=== PATIENT | male | born 1930 | race Caucasian/White ===

== ENCOUNTER 2017-11-08 01:58 | Emergency (ER) | payer MEDICARE, OTHER ==
[2017-11-08 03:18] LABS: BASO % 0.3 % (0.0-1.0); EOS # 0.2 10^3/uL (0.0-0.50); EOS % 1.9 % (0.0-3.0); HEMATOCRIT 43.9 % (42.0-52.0); HEMOGLOBIN 14.7 g/dl (14.0-18.0); IMMATURE GRANULOCYTE % 0.2 % (0-3.0); LYMPH # 2.9 10^3/uL (1.5-4.5); LYMPH % 31.6 % (24.0-44.0); MEAN CORPUSCULAR HEMOGLOBIN 31.8 pg (27.0-33.0); MEAN CORPUSCULAR HGB CONC 33.5 g/dl (32.0-36.5); MONO # 0.8 10^3/uL (0.0-0.8); MONO % 8.9 % (0.0-5.0); NEUTROPHILS # 5.2 10^3/uL (1.8-7.7); NEUTROPHILS % 57.1 % (36.0-66.0); PLATELET COUNT, AUTOMATED 216 10^3/uL (150-450); RED BLOOD COUNT 4.62 10^6/uL (4.30-6.10); RED CELL DISTRIBUTION WIDTH 12.9 % (11.5-14.5); WHITE BLOOD COUNT 9.1 10^3/uL (4.0-10.0)
[2017-11-08 03:54] LABS: LACTIC ACID SEPSIS PROTOCOL 0.7 MMOL/L (0.4-2.0)
[2017-11-08 03:55] LABS: ALBUMIN 3.8 GM/DL (3.2-5.2); ALBUMIN/GLOBULIN RATIO 1.27 (1.00-1.93); ALKALINE PHOSPHATASE 64 U/L (45-117); ALT/SGPT 48 U/L (12-78); ANION GAP 8 MEQ/L (8-16); AST/SGOT 21 U/L (7-37); BILIRUBIN,DIRECT 0.2 MG/DL (0.0-0.2); BILIRUBIN,TOTAL 0.7 MG/DL (0.2-1.0); BLOOD UREA NITROGEN 59 MG/DL (7-18); CALCIUM LEVEL 9.1 MG/DL (8.8-10.2); CARBON DIOXIDE LEVEL 26 MEQ/L (21-32); CHLORIDE LEVEL 109 MEQ/L (98-107); CPK CREATINE PHOSPHOKINASE 84 U/L (39-308); CREATININE FOR GFR 2.13 MG/DL (0.70-1.30); GLOMERULAR FILTRATION RATE 31.6 (>35); GLUCOSE, FASTING 106 MG/DL (70-100); LIPASE 736 U/L (73-393); POTASSIUM SERUM 4.9 MEQ/L (3.5-5.1); SODIUM LEVEL 143 MEQ/L (136-145); TOTAL PROTEIN 6.8 GM/DL (6.4-8.2); TROPONIN I < 0.02 NG/ML (< 0.10)
[2017-11-08 03:56] LABS: CK-MB VALUE MASS 2.7 NG/ML (<3.6); MB/CK RELATIVE INDEX 3.21 (< OR =4)
[2017-11-08] MEDS: GASTROGRAFIN SOLUTION 30ML PO ×2 (06:15→07:40)
== END 2017-11-08 11:45 | disposition home or self-care (01) ==
LOC: M ED 01:58
DX: R14.0 Abdominal distension (gaseous) (principal); K85.90 Acute pancreatitis without necrosis or infection, unspecified; I10 Essential (primary) hypertension; N28.9 Disorder of kidney and ureter, unspecified; E78.5 Hyperlipidemia, unspecified; K21.9 Gastro-esophageal reflux disease without esophagitis; N40.0 Benign prostatic hyperplasia without lower urinary tract symptoms; Z98.890 Other specified postprocedural states; Z79.899 Other long term (current) drug therapy; Z79.82 Long term (current) use of aspirin
CPT/HCPCS: Q9963

== ENCOUNTER 2017-11-10 20:12 | Inpatient (IN) | payer MEDICARE, OTHER ==
[2017-11-10] MEDS: LACTOBACILLUS ACIDOPHILUS CAP (BACID) PO (18:00)
[2017-11-10] MEDS: ATORVASTATIN 20 MG TAB PO (18:00)
[2017-11-10] MEDS: SENOKOT S TAB PO (21:00)
[2017-11-10] MEDS: PANTOPRAZOLE 40MG INJ (PROTONIX) (C9113) IV (21:00)
[2017-11-10] MEDS: HEPARIN SOD (PORCINE) 5000 UNITS/ML VIAL SC (21:00)
[2017-11-10] MEDS: NS 1,000 ML IV (21:26)
[2017-11-10] MEDS: ONDANSETRON 4MG/2ML VIAL (J2405) IV (21:26)
[2017-11-10] MEDS: MORPHINE 2 MG/ML 1ML SYRINGE (J2270) IV ×2 (21:26→22:11)
[2017-11-10 21:28] LABS: BASO % 0.4 % (0.0-1.0); EOS # 0.2 10^3/uL (0.0-0.50); EOS % 2.1 % (0.0-3.0); HEMATOCRIT 43.1 % (42.0-52.0); HEMOGLOBIN 14.8 g/dl (13.5-17.5); IMMATURE GRANULOCYTE % 0.1 % (0-3.0); LYMPH # 2.6 10^3/uL (1.5-4.5); LYMPH % 31.9 % (24.0-44.0); MEAN CORPUSCULAR HEMOGLOBIN 31.6 pg (27.0-33.0); MEAN CORPUSCULAR HGB CONC 34.3 g/dl (32.0-36.5); MEAN CORPUSCULAR VOLUME 91.9 fl (80.0-96.0); MONO # 0.9 10^3/uL (0.0-0.8); MONO % 11.1 % (0.0-5.0); NEUTROPHILS # 4.4 10^3/uL (1.8-7.7); NEUTROPHILS % 54.4 % (36.0-66.0); PLATELET COUNT, AUTOMATED 225 10^3/uL (150-450); RED BLOOD COUNT 4.69 10^6/uL (4.30-6.10); RED CELL DISTRIBUTION WIDTH 12.6 % (11.5-14.5); WHITE BLOOD COUNT 8.1 10^3/uL (4.0-10.0)
[2017-11-10 21:40] LABS: ALBUMIN 3.9 GM/DL (3.2-5.2); ALKALINE PHOSPHATASE 73 U/L (45-117); ALT/SGPT 44 U/L (12-78); ANION GAP 7 MEQ/L (8-16); AST/SGOT 27 U/L (7-37); BILIRUBIN,DIRECT 0.2 MG/DL (0.0-0.2); BILIRUBIN,TOTAL 0.8 MG/DL (0.2-1.0); BLOOD UREA NITROGEN 37 MG/DL (7-18); CALCIUM LEVEL 9.3 MG/DL (8.8-10.2); CARBON DIOXIDE LEVEL 27 MEQ/L (21-32); CHLORIDE LEVEL 105 MEQ/L (98-107); CREATININE FOR GFR 2.15 MG/DL (0.70-1.30); GLOMERULAR FILTRATION RATE 31.3 (>35); GLUCOSE, FASTING 100 MG/DL (70-100); LIPASE 541 U/L (73-393); POTASSIUM SERUM 4.8 MEQ/L (3.5-5.1); SODIUM LEVEL 139 MEQ/L (136-145); TOTAL PROTEIN 6.9 GM/DL (6.4-8.2)
[2017-11-10 21:44] LABS: KETONE, URINE AUTO RFX NEGATIVE (NEGATIVE); LEUKOCYTE ESTERASE UR AUTO RFX NEGATIVE (NEGATIVE); MUCUS, URINE RFX SMALL (NEGATIVE); NITRITE, URINE AUTO RFX NEGATIVE (NEGATIVE); RBC, URINE AUTO RFX 1 /HPF (0-3); SQUAM EPITHELIAL CELL UR AURFX 0 /HPF (0-6); WBC, URINE AUTO RFX 0 /HPF (0-3)
[2017-11-10] MEDS: LORazepam 2 MG/ML VIAL (J2060) IV (22:33)
[2017-11-10] MEDS: GI COCKTAIL 50ML BTL(HYOSCYAMINE/MAALOX/LIDOCAINE VISCOUS)(1:3:1) PO (22:47)
[2017-11-10] MEDS ORDERED: ONDANSETRON 4MG/2ML VIAL (J2405) IV (23:45)
[2017-11-10 23:51] LABS: CK-MB VALUE MASS 4.1 NG/ML (<3.6); CPK CREATINE PHOSPHOKINASE 160 U/L (39-308); MB/CK RELATIVE INDEX 2.56 (< OR =4); TROPONIN I < 0.02 NG/ML (< 0.10)
[2017-11-10] MEDS: GASTROGRAFIN SOLUTION 30ML (Q9963) PO (23:55)
[2017-11-11] MEDS: GASTROGRAFIN SOLUTION 30ML (Q9963) PO (00:25)
[2017-11-11] MEDS: NS 1,000 ML IV ×4 (04:47→23:58)
[2017-11-11 05:38] LABS: HEMATOCRIT 39.8 % (42.0-52.0); HEMOGLOBIN 13.2 g/dl (13.5-17.5); MEAN CORPUSCULAR HEMOGLOBIN 31.6 pg (27.0-33.0); MEAN CORPUSCULAR HGB CONC 33.2 g/dl (32.0-36.5); MEAN CORPUSCULAR VOLUME 95.2 fl (80.0-96.0); PLATELET COUNT, AUTOMATED 180 10^3/uL (150-450); RED BLOOD COUNT 4.18 10^6/uL (4.30-6.10); RED CELL DISTRIBUTION WIDTH 12.5 % (11.5-14.5); WHITE BLOOD COUNT 6.5 10^3/uL (4.0-10.0)
[2017-11-11 06:04] LABS: ALBUMIN 3.1 GM/DL (3.2-5.2); ALBUMIN/GLOBULIN RATIO 1.15 (1.00-1.93); ALKALINE PHOSPHATASE 127 U/L (45-117); ALT/SGPT 141 U/L (12-78); ANION GAP 6 MEQ/L (8-16); AST/SGOT 164 U/L (7-37); BLOOD UREA NITROGEN 34 MG/DL (7-18); CALCIUM LEVEL 8.5 MG/DL (8.8-10.2); CARBON DIOXIDE LEVEL 27 MEQ/L (21-32); CHLORIDE LEVEL 106 MEQ/L (98-107); CK-MB VALUE MASS 3.5 NG/ML (<3.6); CPK CREATINE PHOSPHOKINASE 132 U/L (39-308); CREATININE FOR GFR 1.96 MG/DL (0.70-1.30); GLOMERULAR FILTRATION RATE 34.8 (>35); GLUCOSE, FASTING 94 MG/DL (70-100); MAGNESIUM LEVEL 1.9 MG/DL (1.8-2.4); MB/CK RELATIVE INDEX 2.65 (< OR =4); POTASSIUM SERUM 4.3 MEQ/L (3.5-5.1); SODIUM LEVEL 139 MEQ/L (136-145); TOTAL PROTEIN 5.8 GM/DL (6.4-8.2); TROPONIN I < 0.02 NG/ML (< 0.10)
[2017-11-11 06:17] LABS: BILIRUBIN,TOTAL 1.4 MG/DL (0.2-1.0)
[2017-11-11] MEDS ORDERED: PANTOPRAZOLE 40MG TAB (PROTONIX) PO (09:00)
[2017-11-11] MEDS: ASPIRIN 81 MG ENTERIC TAB PO (09:38)
[2017-11-11] MEDS: HEPARIN SOD (PORCINE) 5000 UNITS/ML VIAL SC ×2 (09:38→20:53)
[2017-11-11] MEDS: MULTIVITAMINS/MINERALS THERAP 1 TAB PO (09:38)
[2017-11-11] MEDS: SENOKOT S TAB PO ×2 (09:38→20:52)
[2017-11-11] MEDS: METOPROLOL SUCC (TopROL XL) 50MG **XL** TAB PO (09:40)
[2017-11-11] MEDS: GOLYTELY SOLN 4000 ML BTL PO (18:09)
[2017-11-11] MEDS: ATORVASTATIN 20 MG TAB PO (18:11)
[2017-11-11] MEDS: LACTOBACILLUS ACIDOPHILUS CAP (BACID) PO (18:11)
[2017-11-11] MEDS: PANTOPRAZOLE 40MG INJ (PROTONIX) (C9113) IV (20:53)
[2017-11-12] MEDS ORDERED: GOLYTELY SOLN 4000 ML BTL PO (04:00)
[2017-11-12 06:18] LABS: HEMATOCRIT 40.7 % (42.0-52.0); HEMOGLOBIN 13.7 g/dl (13.5-17.5); MEAN CORPUSCULAR HEMOGLOBIN 31.8 pg (27.0-33.0); MEAN CORPUSCULAR HGB CONC 33.7 g/dl (32.0-36.5); MEAN CORPUSCULAR VOLUME 94.4 fl (80.0-96.0); PLATELET COUNT, AUTOMATED 188 10^3/uL (150-450); RED BLOOD COUNT 4.31 10^6/uL (4.30-6.10); RED CELL DISTRIBUTION WIDTH 12.5 % (11.5-14.5); WHITE BLOOD COUNT 6.7 10^3/uL (4.0-10.0)
[2017-11-12 06:39] LABS: ALBUMIN 3.3 GM/DL (3.2-5.2); ALKALINE PHOSPHATASE 126 U/L (45-117); ALT/SGPT 116 U/L (12-78); ANION GAP 5 MEQ/L (8-16); AST/SGOT 68 U/L (7-37); BILIRUBIN,TOTAL 0.7 MG/DL (0.2-1.0); BLOOD UREA NITROGEN 23 MG/DL (7-18); CALCIUM LEVEL 8.6 MG/DL (8.8-10.2); CARBON DIOXIDE LEVEL 28 MEQ/L (21-32); CHLORIDE LEVEL 109 MEQ/L (98-107); CREATININE FOR GFR 1.75 MG/DL (0.70-1.30); GLOMERULAR FILTRATION RATE 39.6 (>35); GLUCOSE, FASTING 85 MG/DL (70-100); MAGNESIUM LEVEL 1.9 MG/DL (1.8-2.4); POTASSIUM SERUM 4.2 MEQ/L (3.5-5.1); SODIUM LEVEL 142 MEQ/L (136-145); TOTAL PROTEIN 6.3 GM/DL (6.4-8.2)
[2017-11-12] MEDS: METOPROLOL SUCC (TopROL XL) 50MG **XL** TAB PO (08:01)
[2017-11-12] MEDS: NS 1,000 ML IV ×4 (08:02→20:22)
[2017-11-12] MEDS ORDERED: fentaNYL 100 MCG/2 ML INJECTION (J3010) As Ordered (12:15)
[2017-11-12] MEDS ORDERED: MIDAZOLAM INJ 2 MG/2 ML VIAL (J2250) As Ordered (12:15)
[2017-11-12] MEDS ORDERED: ISOVUE-300 61% 50ML VIAL (Q9967) As Ordered (12:16)
[2017-11-12] MEDS ORDERED: fentaNYL 100 MCG/2 ML INJECTION (J3010) IV (14:30)
[2017-11-12] MEDS ORDERED: ONDANSETRON 4MG/2ML VIAL (J2405) IV (14:30)
[2017-11-12] MEDS: ASPIRIN 81 MG ENTERIC TAB PO (14:56)
[2017-11-12] MEDS: SENOKOT S TAB PO ×2 (14:56→20:22)
[2017-11-12] MEDS: VITAMIN D 1,000 INTERNATIONAL UNITS TABLET PO (14:56)
[2017-11-12] MEDS: MULTIVITAMINS/MINERALS THERAP 1 TAB PO (14:56)
[2017-11-12] MEDS: HEPARIN SOD (PORCINE) 5000 UNITS/ML VIAL SC ×2 (14:57→20:22)
[2017-11-12] MEDS: CLOPIDOGREL 300 MG TAB (PLAVIX) PO (15:02)
[2017-11-12] MEDS: LACTOBACILLUS ACIDOPHILUS CAP (BACID) PO (17:14)
[2017-11-12] MEDS: ATORVASTATIN 20 MG TAB PO (17:14)
[2017-11-12] MEDS: PANTOPRAZOLE 40MG INJ (PROTONIX) (C9113) IV (20:21)
[2017-11-13] MEDS: MORPHINE 4 MG/ML 1ML VIAL/SYRINGE (J2270) IV (00:17)
[2017-11-13 05:57] LABS: HEMATOCRIT 35.1 % (42.0-52.0); HEMOGLOBIN 11.8 g/dl (13.5-17.5); MEAN CORPUSCULAR HGB CONC 33.6 g/dl (32.0-36.5); MEAN CORPUSCULAR VOLUME 95.1 fl (80.0-96.0); PLATELET COUNT, AUTOMATED 148 10^3/uL (150-450); RED BLOOD COUNT 3.69 10^6/uL (4.30-6.10); RED CELL DISTRIBUTION WIDTH 12.5 % (11.5-14.5); WHITE BLOOD COUNT 7.8 10^3/uL (4.0-10.0)
[2017-11-13 06:15] LABS: ALBUMIN 2.8 GM/DL (3.2-5.2); ALBUMIN/GLOBULIN RATIO 1.08 (1.00-1.93); ALKALINE PHOSPHATASE 111 U/L (45-117); ALT/SGPT 74 U/L (12-78); ANION GAP 7 MEQ/L (8-16); AST/SGOT 41 U/L (7-37); BILIRUBIN,TOTAL 0.7 MG/DL (0.2-1.0); BLOOD UREA NITROGEN 12 MG/DL (7-18); CALCIUM LEVEL 8.1 MG/DL (8.8-10.2); CARBON DIOXIDE LEVEL 22 MEQ/L (21-32); CHLORIDE LEVEL 114 MEQ/L (98-107); GLOMERULAR FILTRATION RATE 55.9 (>35); GLUCOSE, FASTING 81 MG/DL (70-100); LIPASE 381 U/L (73-393); MAGNESIUM LEVEL 1.8 MG/DL (1.8-2.4); POTASSIUM SERUM 4.1 MEQ/L (3.5-5.1); SODIUM LEVEL 143 MEQ/L (136-145); TOTAL PROTEIN 5.4 GM/DL (6.4-8.2)
[2017-11-13] MEDS: ASPIRIN 81 MG ENTERIC TAB PO (08:27)
[2017-11-13] MEDS: MULTIVITAMINS/MINERALS THERAP 1 TAB PO (08:27)
[2017-11-13] MEDS: METOPROLOL SUCC (TopROL XL) 50MG **XL** TAB PO (08:28)
[2017-11-13] MEDS: CLOPIDOGREL 75 MG TAB PO (08:28)
[2017-11-13] MEDS: SENOKOT S TAB PO ×2 (08:28→20:07)
[2017-11-13] MEDS: HEPARIN SOD (PORCINE) 5000 UNITS/ML VIAL SC ×2 (08:29→20:04)
[2017-11-13] MEDS: NS 1,000 ML IV ×3 (09:55→20:05)
[2017-11-13] MEDS: ATORVASTATIN 20 MG TAB PO (18:22)
[2017-11-13] MEDS: LACTOBACILLUS ACIDOPHILUS CAP (BACID) PO (18:22)
[2017-11-13] MEDS: PANTOPRAZOLE 40MG INJ (PROTONIX) (C9113) IV (20:04)
[2017-11-14 06:11] LABS: HEMATOCRIT 32.6 % (42.0-52.0); MEAN CORPUSCULAR HEMOGLOBIN 31.2 pg (27.0-33.0); MEAN CORPUSCULAR HGB CONC 33.7 g/dl (32.0-36.5); MEAN CORPUSCULAR VOLUME 92.4 fl (80.0-96.0); PLATELET COUNT, AUTOMATED 148 10^3/uL (150-450); RED BLOOD COUNT 3.53 10^6/uL (4.30-6.10); RED CELL DISTRIBUTION WIDTH 12.6 % (11.5-14.5)
[2017-11-14 06:33] LABS: ALBUMIN 2.6 GM/DL (3.2-5.2); ALBUMIN/GLOBULIN RATIO 1.04 (1.00-1.93); ALKALINE PHOSPHATASE 90 U/L (45-117); ALT/SGPT 56 U/L (12-78); ANION GAP 6 MEQ/L (8-16); AST/SGOT 27 U/L (7-37); BILIRUBIN,TOTAL 0.7 MG/DL (0.2-1.0); BLOOD UREA NITROGEN 8 MG/DL (7-18); CALCIUM LEVEL 7.8 MG/DL (8.8-10.2); CARBON DIOXIDE LEVEL 23 MEQ/L (21-32); CHLORIDE LEVEL 112 MEQ/L (98-107); CREATININE FOR GFR 1.23 MG/DL (0.70-1.30); GLOMERULAR FILTRATION RATE 59.5 (>35); GLUCOSE, FASTING 86 MG/DL (70-100); LIPASE 344 U/L (73-393); MAGNESIUM LEVEL 1.6 MG/DL (1.8-2.4); POTASSIUM SERUM 4.1 MEQ/L (3.5-5.1); SODIUM LEVEL 141 MEQ/L (136-145); TOTAL PROTEIN 5.1 GM/DL (6.4-8.2)
[2017-11-14] MEDS: HEPARIN SOD (PORCINE) 5000 UNITS/ML VIAL SC ×2 (09:00→21:38)
[2017-11-14] MEDS: MULTIVITAMINS/MINERALS THERAP 1 TAB PO (09:52)
[2017-11-14] MEDS: VITAMIN D 1,000 INTERNATIONAL UNITS TABLET PO (09:52)
[2017-11-14] MEDS: METOPROLOL SUCC (TopROL XL) 50MG **XL** TAB PO (09:54)
[2017-11-14] MEDS: CLOPIDOGREL 75 MG TAB PO (09:54)
[2017-11-14] MEDS: SENOKOT S TAB PO ×2 (09:54→21:38)
[2017-11-14] MEDS: ASPIRIN 81 MG ENTERIC TAB PO (09:55)
[2017-11-14] MEDS: NS 1,000 ML IV ×2 (11:29→19:14)
[2017-11-14] MEDS ORDERED: THROMBIN SOLN 5,000 UNITS VIAL As Ordered (17:55)
[2017-11-14] MEDS ORDERED: LIDOCAINE 2% MDV 20 ML VIAL As Ordered (18:23)
[2017-11-14] MEDS: LACTOBACILLUS ACIDOPHILUS CAP (BACID) PO (19:14)
[2017-11-14] MEDS: ATORVASTATIN 20 MG TAB PO (19:14)
[2017-11-14] MEDS: PANTOPRAZOLE 40MG INJ (PROTONIX) (C9113) IV (21:37)
[2017-11-15] MEDS: **hydrALAZINE** 50 MG TAB PO (02:15)
[2017-11-15 06:23] LABS: HEMATOCRIT 35.1 % (42.0-52.0); HEMOGLOBIN 12.1 g/dl (13.5-17.5); MEAN CORPUSCULAR HEMOGLOBIN 32.1 pg (27.0-33.0); MEAN CORPUSCULAR HGB CONC 34.5 g/dl (32.0-36.5); MEAN CORPUSCULAR VOLUME 93.1 fl (80.0-96.0); PLATELET COUNT, AUTOMATED 168 10^3/uL (150-450); RED BLOOD COUNT 3.77 10^6/uL (4.30-6.10); RED CELL DISTRIBUTION WIDTH 12.8 % (11.5-14.5); WHITE BLOOD COUNT 9.1 10^3/uL (4.0-10.0)
[2017-11-15 06:37] LABS: ALBUMIN/GLOBULIN RATIO 0.97 (1.00-1.93); ALKALINE PHOSPHATASE 105 U/L (45-117); ALT/SGPT 66 U/L (12-78); ANION GAP 10 MEQ/L (8-16); AST/SGOT 43 U/L (7-37); BILIRUBIN,TOTAL 0.9 MG/DL (0.2-1.0); BLOOD UREA NITROGEN 9 MG/DL (7-18); CALCIUM LEVEL 8.3 MG/DL (8.8-10.2); CARBON DIOXIDE LEVEL 18 MEQ/L (21-32); CHLORIDE LEVEL 112 MEQ/L (98-107); CREATININE FOR GFR 1.15 MG/DL (0.70-1.30); GLOMERULAR FILTRATION RATE > 60.0 (>35); GLUCOSE, FASTING 71 MG/DL (70-100); LIPASE 408 U/L (73-393); MAGNESIUM LEVEL 1.6 MG/DL (1.8-2.4); POTASSIUM SERUM 3.8 MEQ/L (3.5-5.1); SODIUM LEVEL 140 MEQ/L (136-145); TOTAL PROTEIN 6.1 GM/DL (6.4-8.2)
[2017-11-15] MEDS: HEPARIN SOD (PORCINE) 5000 UNITS/ML VIAL SC ×2 (08:54→20:17)
[2017-11-15] MEDS: MAG SULF 1GM/100ML (MAG RUN) 1 GM in APPROPRIATE DILUENT 1 EA IV (08:54)
[2017-11-15] MEDS: ASPIRIN 81 MG ENTERIC TAB PO (08:55)
[2017-11-15] MEDS: CLOPIDOGREL 75 MG TAB PO (08:55)
[2017-11-15] MEDS: SENOKOT S TAB PO ×2 (08:58→20:13)
[2017-11-15] MEDS: MULTIVITAMINS/MINERALS THERAP 1 TAB PO (08:58)
[2017-11-15] MEDS: METOPROLOL SUCC (TopROL XL) 50MG **XL** TAB PO (08:58)
[2017-11-15] MEDS ORDERED: VALSARTAN 80 MG TAB (DIOVAN) PO (09:00)
[2017-11-15] MEDS: ACETAMINOPHEN 325 MG TAB PO ×2 (11:45→20:14)
[2017-11-15] MEDS: ATORVASTATIN 20 MG TAB PO (17:37)
[2017-11-15] MEDS: LACTOBACILLUS ACIDOPHILUS CAP (BACID) PO (17:37)
[2017-11-15] MEDS: VALSARTAN 80 MG TAB (DIOVAN) PO (20:16)
[2017-11-15] MEDS: PANTOPRAZOLE 40MG INJ (PROTONIX) (C9113) IV (20:17)
[2017-11-16 06:08] LABS: HEMATOCRIT 32.8 % (42.0-52.0); HEMOGLOBIN 11.4 g/dl (13.5-17.5); MEAN CORPUSCULAR HEMOGLOBIN 31.7 pg (27.0-33.0); MEAN CORPUSCULAR HGB CONC 34.8 g/dl (32.0-36.5); MEAN CORPUSCULAR VOLUME 91.1 fl (80.0-96.0); PLATELET COUNT, AUTOMATED 190 10^3/uL (150-450); RED CELL DISTRIBUTION WIDTH 12.7 % (11.5-14.5); WHITE BLOOD COUNT 7.7 10^3/uL (4.0-10.0)
[2017-11-16 06:31] LABS: ALBUMIN 2.8 GM/DL (3.2-5.2); ALBUMIN/GLOBULIN RATIO 0.97 (1.00-1.93); ALKALINE PHOSPHATASE 90 U/L (45-117); ALT/SGPT 56 U/L (12-78); ANION GAP 7 MEQ/L (8-16); AST/SGOT 29 U/L (7-37); BILIRUBIN,DIRECT 0.2 MG/DL (0.0-0.2); BILIRUBIN,TOTAL 0.8 MG/DL (0.2-1.0); BLOOD UREA NITROGEN 10 MG/DL (7-18); CALCIUM LEVEL 8.3 MG/DL (8.8-10.2); CARBON DIOXIDE LEVEL 25 MEQ/L (21-32); CHLORIDE LEVEL 112 MEQ/L (98-107); CREATININE FOR GFR 1.37 MG/DL (0.70-1.30); GLOMERULAR FILTRATION RATE 52.6 (>35); GLUCOSE, FASTING 92 MG/DL (70-100); MAGNESIUM LEVEL 1.7 MG/DL (1.8-2.4); POTASSIUM SERUM 3.7 MEQ/L (3.5-5.1); SODIUM LEVEL 144 MEQ/L (136-145); TOTAL PROTEIN 5.7 GM/DL (6.4-8.2)
[2017-11-16] MEDS: MAGNESIUM OXIDE 400 MG TAB (MAG-OX) PO (08:44)
[2017-11-16] MEDS: SENOKOT S TAB PO (08:45)
[2017-11-16] MEDS: CLOPIDOGREL 75 MG TAB PO (08:45)
[2017-11-16] MEDS: VITAMIN D 1,000 INTERNATIONAL UNITS TABLET PO (08:45)
[2017-11-16] MEDS: MULTIVITAMINS/MINERALS THERAP 1 TAB PO (08:45)
[2017-11-16] MEDS: METOPROLOL SUCC (TopROL XL) 50MG **XL** TAB PO (08:45)
[2017-11-16] MEDS: ASPIRIN 81 MG ENTERIC TAB PO (08:45)
[2017-11-16] MEDS: HEPARIN SOD (PORCINE) 5000 UNITS/ML VIAL SC (08:45)
[2017-11-16] MEDS ORDERED: **hydrALAZINE** 50 MG TAB PO ×2 (09:00→17:00)
== END 2017-11-16 12:57 | disposition home or self-care (01) | DRG 252 ==
LOC: M MSPAV 11-11 03:50 → M ED 20:12 → M ED INP 23:35
PROC: 04753DZ Dilation of Superior Mesenteric Artery with Intraluminal Device, Percutaneous Approach (ICD-10-PCS; principal; 2017-11-12 11:33)
PROC: 04713DZ Dilation of Celiac Artery with Intraluminal Device, Percutaneous Approach (ICD-10-PCS; 2017-11-12 11:33)
PROC: B41BYZZ Fluoroscopy of Other Intra-Abdominal Arteries using Other Contrast (ICD-10-PCS; 2017-11-12 11:33)
PROC: B414YZZ Fluoroscopy of Superior Mesenteric Artery using Other Contrast (ICD-10-PCS; 2017-11-12 11:33)
DX: I77.1 Stricture of artery (principal); K85.90 Acute pancreatitis without necrosis or infection, unspecified; N18.4 Chronic kidney disease, stage 4 (severe); G12.9 Spinal muscular atrophy, unspecified; K55.1 Chronic vascular disorders of intestine; I77.4 Celiac artery compression syndrome; I12.9 Hypertensive chronic kidney disease with stage 1 through stage 4 chronic kidney disease, or unspecified chronic kidney disease; E78.5 Hyperlipidemia, unspecified; K21.9 Gastro-esophageal reflux disease without esophagitis; N40.0 Benign prostatic hyperplasia without lower urinary tract symptoms; Z98.890 Other specified postprocedural states; Z79.899 Other long term (current) drug therapy; Z79.82 Long term (current) use of aspirin

== ENCOUNTER → 2017-11-10 | Outpatient (CLI) | payer MEDICARE, OTHER ==
[2017-11-10 12:31] LABS: LIPASE 625 U/L (73-393)
[2017-11-10 12:31] LABS: AMYLASE 118 U/L (25-115)
== END ==
LOC: M LAB 11:35
DX: R14.0 Abdominal distension (gaseous) (principal); K59.00 Constipation, unspecified

== ENCOUNTER → 2017-12-27 | Outpatient (CLI) | payer MEDICARE, OTHER | LOC: M RAD 08:18 | DX: K55.1 Chronic vascular disorders of intestine (principal) | CPT/HCPCS: 93975 ==

== ENCOUNTER → 2018-04-20 | Outpatient (CLI) | payer MEDICARE, OTHER | LOC: M RAD 09:50 | DX: K55.1 Chronic vascular disorders of intestine (principal) | CPT/HCPCS: 76705 ==

== ENCOUNTER → 2018-06-01 | Outpatient (CLI) | payer MEDICARE, OTHER | LOC: M RAD 07:11 | DX: K55.1 Chronic vascular disorders of intestine (principal); R14.0 Abdominal distension (gaseous) | CPT/HCPCS: 76705 ==

== ENCOUNTER 2018-06-03 05:00 | Emergency (ER) | payer MEDICARE, OTHER ==
[2018-06-03 06:23] LABS: BASO % 0.5 % (0.0-1.0); EOS # 0.1 10^3/uL (0.0-0.50); EOS % 0.9 % (0.0-3.0); HEMATOCRIT 47.7 % (42.0-52.0); IMMATURE GRANULOCYTE % 0.2 % (0-3.0); LYMPH # 2.6 10^3/uL (1.5-4.5); LYMPH % 32.1 % (24.0-44.0); MEAN CORPUSCULAR HEMOGLOBIN 31.3 pg (27.0-33.0); MEAN CORPUSCULAR HGB CONC 33.5 g/dl (32.0-36.5); MEAN CORPUSCULAR VOLUME 93.3 fl (80.0-96.0); MONO # 0.6 10^3/uL (0.0-0.8); MONO % 7.3 % (0.0-5.0); NEUTROPHILS # 4.8 10^3/uL (1.8-7.7); PLATELET COUNT, AUTOMATED 198 10^3/uL (150-450); RED BLOOD COUNT 5.11 10^6/uL (4.30-6.10); RED CELL DISTRIBUTION WIDTH 14.4 % (11.5-14.5); WHITE BLOOD COUNT 8.2 10^3/uL (4.0-10.0)
[2018-06-03 06:34] LABS: INR 0.91; PROTHROMBIN TIME 12.4 SECONDS (12.1-14.4)
[2018-06-03 06:37] LABS: LACTIC ACID SEPSIS PROTOCOL 1.2 MMOL/L (0.4-2.0)
[2018-06-03 06:41] LABS: PARTIAL THROMBOPLASTIN TIME 28.2 SECONDS (25.4-37.6)
[2018-06-03 06:48] LABS: ALBUMIN 4.2 GM/DL (3.2-5.2); ALBUMIN/GLOBULIN RATIO 1.45 (1.00-1.93); ALKALINE PHOSPHATASE 74 U/L (45-117); ALT/SGPT 28 U/L (12-78); ANION GAP 10 MEQ/L (8-16); AST/SGOT 13 U/L (7-37); BILIRUBIN,DIRECT 0.2 MG/DL (0.0-0.2); BILIRUBIN,TOTAL 0.9 MG/DL (0.2-1.0); BLOOD UREA NITROGEN 49 MG/DL (7-18); CALCIUM LEVEL 9.5 MG/DL (8.8-10.2); CARBON DIOXIDE LEVEL 26 MEQ/L (21-32); CHLORIDE LEVEL 106 MEQ/L (98-107); CREATININE FOR GFR 2.12 MG/DL (0.70-1.30); GLOMERULAR FILTRATION RATE 31.7 (>35); GLUCOSE, FASTING 116 MG/DL (70-100); LIPASE 500 U/L (73-393); POTASSIUM SERUM 4.2 MEQ/L (3.5-5.1); SODIUM LEVEL 142 MEQ/L (136-145); TOTAL PROTEIN 7.1 GM/DL (6.4-8.2)
[2018-06-03] MEDS: NS 1,000 ML IV (07:57)
[2018-06-03] MEDS: **hydrALAZINE** 50 MG TAB PO (08:31)
[2018-06-03] MEDS: ACETAMINOPHEN TAB 650MG DOSE (2X325MG) PO (09:02)
[2018-06-03] MEDS: FUROSEMIDE 40 MG TAB PO (09:02)
== END 2018-06-03 09:48 | disposition short-term general hospital (02) ==
LOC: M ED 05:00
DX: I10 Essential (primary) hypertension (principal); R10.9 Unspecified abdominal pain; I77.4 Celiac artery compression syndrome; N28.9 Disorder of kidney and ureter, unspecified; N18.3 Chronic kidney disease, stage 3 (moderate); K57.30 Diverticulosis of large intestine without perforation or abscess without bleeding; Z79.82 Long term (current) use of aspirin; Z79.899 Other long term (current) drug therapy
CPT/HCPCS: 74176

== ENCOUNTER 2018-06-05 04:32 | Emergency (ER) | payer MEDICARE, OTHER ==
[2018-06-05 05:25] LABS: BASO % 0.4 % (0.0-1.0); EOS # 0.1 10^3/uL (0.0-0.50); EOS % 0.7 % (0.0-3.0); HEMATOCRIT 48.9 % (42.0-52.0); HEMOGLOBIN 16.7 g/dl (13.5-17.5); IMMATURE GRANULOCYTE % 0.4 % (0-3.0); LYMPH % 28.4 % (24.0-44.0); MEAN CORPUSCULAR HEMOGLOBIN 31.4 pg (27.0-33.0); MEAN CORPUSCULAR HGB CONC 34.2 g/dl (32.0-36.5); MEAN CORPUSCULAR VOLUME 91.9 fl (80.0-96.0); MONO # 0.8 10^3/uL (0.0-0.8); NEUTROPHILS # 6.8 10^3/uL (1.8-7.7); NEUTROPHILS % 63.1 % (36.0-66.0); PLATELET COUNT, AUTOMATED 222 10^3/uL (150-450); RED BLOOD COUNT 5.32 10^6/uL (4.30-6.10); RED CELL DISTRIBUTION WIDTH 14.3 % (11.5-14.5); WHITE BLOOD COUNT 10.7 10^3/uL (4.0-10.0)
[2018-06-05] MEDS: GI COCKTAIL 50ML BTL(HYOSCYAMINE/MAALOX/LIDOCAINE VISCOUS)(1:3:1) PO (05:25)
[2018-06-05 05:32] LABS: ALBUMIN 4.1 GM/DL (3.2-5.2); ALBUMIN/GLOBULIN RATIO 1.14 (1.00-1.93); ALKALINE PHOSPHATASE 81 U/L (45-117); ALT/SGPT 33 U/L (12-78); ANION GAP 8 MEQ/L (8-16); AST/SGOT 21 U/L (7-37); BILIRUBIN,DIRECT 0.2 MG/DL (0.0-0.2); BLOOD UREA NITROGEN 43 MG/DL (7-18); CALCIUM LEVEL 9.9 MG/DL (8.8-10.2); CARBON DIOXIDE LEVEL 27 MEQ/L (21-32); CHLORIDE LEVEL 103 MEQ/L (98-107); CREATININE FOR GFR 2.04 MG/DL (0.70-1.30); GLOMERULAR FILTRATION RATE 33.1 (>35); GLUCOSE, FASTING 117 MG/DL (70-100); LIPASE 423 U/L (73-393); POTASSIUM SERUM 3.7 MEQ/L (3.5-5.1); SODIUM LEVEL 138 MEQ/L (136-145); TOTAL PROTEIN 7.7 GM/DL (6.4-8.2)
[2018-06-05 06:02] LABS: LACTIC ACID SEPSIS PROTOCOL 1.2 MMOL/L (0.4-2.0)
[2018-06-05] MEDS: METOCLOPRAMIDE INJ 10MG/2ML VIAL (J2765) IV (06:50)
[2018-06-05] MEDS: DICYCLOMINE 10 MG CAP PO (07:00)
== END 2018-06-05 07:54 | disposition home or self-care (01) ==
LOC: M ED 04:32
DX: R14.2 Eructation (principal); R14.1 Gas pain; N18.3 Chronic kidney disease, stage 3 (moderate); Z79.899 Other long term (current) drug therapy

== ENCOUNTER 2018-06-07 03:11 | Inpatient (IN) | payer MEDICARE, OTHER ==
[2018-06-07 03:52] LABS: BASO % 0.3 % (0.0-1.0); EOS # 0.1 10^3/uL (0.0-0.50); HEMATOCRIT 47.7 % (42.0-52.0); HEMOGLOBIN 16.2 g/dl (13.5-17.5); IMMATURE GRANULOCYTE % 0.2 % (0-3.0); LYMPH # 3.3 10^3/uL (1.5-4.5); LYMPH % 33.5 % (24.0-44.0); MEAN CORPUSCULAR HEMOGLOBIN 31.3 pg (27.0-33.0); MEAN CORPUSCULAR VOLUME 92.3 fl (80.0-96.0); MONO # 0.7 10^3/uL (0.0-0.8); MONO % 6.7 % (0.0-5.0); NEUTROPHILS # 5.8 10^3/uL (1.8-7.7); NEUTROPHILS % 58.3 % (36.0-66.0); PLATELET COUNT, AUTOMATED 204 10^3/uL (150-450); RED BLOOD COUNT 5.17 10^6/uL (4.30-6.10); RED CELL DISTRIBUTION WIDTH 14.1 % (11.5-14.5); WHITE BLOOD COUNT 9.9 10^3/uL (4.0-10.0)
[2018-06-07 04:25] LABS: ALBUMIN 4.3 GM/DL (3.2-5.2); ALBUMIN/GLOBULIN RATIO 1.43 (1.00-1.93); ALKALINE PHOSPHATASE 84 U/L (45-117); ALT/SGPT 30 U/L (12-78); ANION GAP 8 MEQ/L (8-16); AST/SGOT 16 U/L (7-37); BILIRUBIN,DIRECT 0.2 MG/DL (0.0-0.2); BILIRUBIN,TOTAL 0.9 MG/DL (0.2-1.0); BLOOD UREA NITROGEN 49 MG/DL (7-18); CALCIUM LEVEL 9.5 MG/DL (8.8-10.2); CARBON DIOXIDE LEVEL 27 MEQ/L (21-32); CHLORIDE LEVEL 105 MEQ/L (98-107); CREATININE FOR GFR 2.14 MG/DL (0.70-1.30); GLOMERULAR FILTRATION RATE 31.3 (>35); GLUCOSE, FASTING 120 MG/DL (70-100); LIPASE 532 U/L (73-393); POTASSIUM SERUM 4.1 MEQ/L (3.5-5.1); SODIUM LEVEL 140 MEQ/L (136-145); TOTAL PROTEIN 7.3 GM/DL (6.4-8.2)
[2018-06-07] MEDS: DICYCLOMINE INJ 20MG/2ML (J0500) IM (04:55)
[2018-06-07] MEDS: ACETAMINOPHEN 325 MG/10.15 ML UDC PO (05:15)
[2018-06-07 08:56] LABS: AMYLASE 105 U/L (25-115)
[2018-06-07] MEDS: GASTROGRAFIN SOLUTION 30ML PO ×2 (09:15→09:45)
[2018-06-07] MEDS: NS 1,000 ML IV (14:33)
[2018-06-07] MEDS: DICYCLOMINE 10 MG CAP PO ×2 (16:00→20:31)
[2018-06-07] MEDS ORDERED: ASPIRIN 81 MG ENTERIC TAB PO (17:45)
[2018-06-07] MEDS ORDERED: CLOPIDOGREL 75 MG TAB PO (17:45)
[2018-06-07] MEDS: MULTIVITAMINS/MINERALS THERAP 1 TAB PO (18:49)
[2018-06-07] MEDS: CLOPIDOGREL 75 MG TAB PO (18:49)
[2018-06-07] MEDS: ASPIRIN 81 MG ENTERIC TAB PO (18:49)
[2018-06-07] MEDS: VITAMIN D 1,000 INTERNATIONAL UNITS TABLET PO (18:49)
[2018-06-07] MEDS: ALLOPURINOL 300 MG TAB PO (18:49)
[2018-06-07] MEDS: MAGNESIUM GLUCONATE 500 MG TAB PO (20:28)
[2018-06-07] MEDS: FLUOROMETHOLONE 0.1% OPHTH SUSP 5 ML BTL OU (20:28)
[2018-06-07] MEDS: COMBIGAN EYE DROPS (PATIENT'S OWN MED) OU (20:28)
[2018-06-07] MEDS: ATORVASTATIN 20 MG TAB PO (20:29)
[2018-06-07] MEDS: METOPROLOL SUCC (TopROL XL) 50MG **XL** TAB PO (20:29)
[2018-06-07] MEDS: **hydrALAZINE HCL** 25 MG TAB PO (20:30)
[2018-06-08] MEDS: NS 1,000 ML IV ×3 (02:49→22:29)
[2018-06-08] MEDS: CALCIUM CARBONATE 500 MG CHEW U/D PO (02:49)
[2018-06-08 05:55] LABS: HEMATOCRIT 43.3 % (42.0-52.0); HEMOGLOBIN 14.4 g/dl (13.5-17.5); MEAN CORPUSCULAR HEMOGLOBIN 31.3 pg (27.0-33.0); MEAN CORPUSCULAR HGB CONC 33.3 g/dl (32.0-36.5); MEAN CORPUSCULAR VOLUME 94.1 fl (80.0-96.0); PLATELET COUNT, AUTOMATED 184 10^3/uL (150-450); RED CELL DISTRIBUTION WIDTH 14.3 % (11.5-14.5); WHITE BLOOD COUNT 8.5 10^3/uL (4.0-10.0)
[2018-06-08 06:25] LABS: ALBUMIN 3.5 GM/DL (3.2-5.2); ALKALINE PHOSPHATASE 70 U/L (45-117); ALT/SGPT 25 U/L (12-78); ANION GAP 7 MEQ/L (8-16); AST/SGOT 18 U/L (7-37); BILIRUBIN,TOTAL 0.8 MG/DL (0.2-1.0); BLOOD UREA NITROGEN 38 MG/DL (7-18); CALCIUM LEVEL 9.1 MG/DL (8.8-10.2); CARBON DIOXIDE LEVEL 27 MEQ/L (21-32); CHLORIDE LEVEL 110 MEQ/L (98-107); CREATININE FOR GFR 1.69 MG/DL (0.70-1.30); GLOMERULAR FILTRATION RATE 41.2 (>35); GLUCOSE, FASTING 96 MG/DL (70-100); LIPASE 445 U/L (73-393); POTASSIUM SERUM 4.3 MEQ/L (3.5-5.1); SODIUM LEVEL 144 MEQ/L (136-145)
[2018-06-08] MEDS: COMBIGAN EYE DROPS (PATIENT'S OWN MED) OU ×2 (08:07→21:25)
[2018-06-08] MEDS: DICYCLOMINE 10 MG CAP PO ×3 (08:07→21:00)
[2018-06-08] MEDS: MULTIVITAMINS/MINERALS THERAP 1 TAB PO (08:07)
[2018-06-08] MEDS: ALLOPURINOL 300 MG TAB PO (08:07)
[2018-06-08] MEDS: ASPIRIN 81 MG ENTERIC TAB PO (08:08)
[2018-06-08] MEDS: CLOPIDOGREL 75 MG TAB PO (08:08)
[2018-06-08] MEDS ORDERED: LIDOCAINE 2% MDV 20 ML VIAL As Ordered (09:26)
[2018-06-08] MEDS ORDERED: ISOVUE-300 61% 50ML VIAL (Q9967) As Ordered (09:26)
[2018-06-08] MEDS ORDERED: fentaNYL 100 MCG/2 ML INJECTION (J3010) As Ordered ×2 (09:27→15:03)
[2018-06-08] MEDS ORDERED: MIDAZOLAM INJ 2 MG/2 ML VIAL (J2250) As Ordered (09:27)
[2018-06-08] MEDS ORDERED: HEPARIN 1,000 UNITS/ML 10ML VIAL (FOR RADIOLOGY& DIALYSIS ONLY) As Ordered (10:00)
[2018-06-08] MEDS ORDERED: PROTAMINE SULF INJ 50 MG/5 ML VIAL (J2720) As Ordered (10:50)
[2018-06-08] MEDS ORDERED: PROPOFOL 200 MG/20 ML VIAL As Ordered (14:55)
[2018-06-08] MEDS ORDERED: LIDOCAINE 2% INJ 100 MG/5 ML SDV (FOR ANES.) As Ordered (14:55)
[2018-06-08] MEDS ORDERED: ePHEDrine SULFATE 25 MG/5 ML(5MG/ML) SYRINGE As Ordered (15:18)
[2018-06-08] MEDS: FLUOROMETHOLONE 0.1% OPHTH SUSP 5 ML BTL OU (21:25)
[2018-06-08] MEDS: METOPROLOL SUCC (TopROL XL) 50MG **XL** TAB PO (21:26)
[2018-06-08] MEDS: **hydrALAZINE HCL** 25 MG TAB PO (21:26)
[2018-06-08] MEDS: MAGNESIUM GLUCONATE 500 MG TAB PO (21:27)
[2018-06-08] MEDS: ATORVASTATIN 20 MG TAB PO (21:27)
[2018-06-08] MEDS: PANTOPRAZOLE 40MG INJ (PROTONIX) (C9113) IV (22:28)
[2018-06-09 06:11] LABS: HEMATOCRIT 41.8 % (42.0-52.0); HEMOGLOBIN 13.8 g/dl (13.5-17.5); MEAN CORPUSCULAR HEMOGLOBIN 31.2 pg (27.0-33.0); MEAN CORPUSCULAR VOLUME 94.6 fl (80.0-96.0); PLATELET COUNT, AUTOMATED 173 10^3/uL (150-450); RED BLOOD COUNT 4.42 10^6/uL (4.30-6.10); RED CELL DISTRIBUTION WIDTH 14.2 % (11.5-14.5)
[2018-06-09 06:34] LABS: ALBUMIN 3.1 GM/DL (3.2-5.2); ALBUMIN/GLOBULIN RATIO 1.07 (1.00-1.93); ALKALINE PHOSPHATASE 72 U/L (45-117); ALT/SGPT 28 U/L (12-78); ANION GAP 6 MEQ/L (8-16); AST/SGOT 18 U/L (7-37); BILIRUBIN,TOTAL 0.8 MG/DL (0.2-1.0); BLOOD UREA NITROGEN 27 MG/DL (7-18); CALCIUM LEVEL 8.6 MG/DL (8.8-10.2); CARBON DIOXIDE LEVEL 26 MEQ/L (21-32); CHLORIDE LEVEL 110 MEQ/L (98-107); CREATININE FOR GFR 1.59 MG/DL (0.70-1.30); GLOMERULAR FILTRATION RATE 44.2 (>35); GLUCOSE, FASTING 86 MG/DL (70-100); LIPASE 721 U/L (73-393); POTASSIUM SERUM 4.7 MEQ/L (3.5-5.1); SODIUM LEVEL 142 MEQ/L (136-145)
[2018-06-09] MEDS: CLOPIDOGREL 75 MG TAB PO (07:49)
[2018-06-09] MEDS: PANTOPRAZOLE 40MG INJ (PROTONIX) (C9113) IV ×2 (07:49→20:52)
[2018-06-09] MEDS: ASPIRIN 81 MG ENTERIC TAB PO (07:49)
[2018-06-09] MEDS: VITAMIN D 1,000 INTERNATIONAL UNITS TABLET PO (07:49)
[2018-06-09] MEDS: MULTIVITAMINS/MINERALS THERAP 1 TAB PO (07:49)
[2018-06-09] MEDS: ALLOPURINOL 300 MG TAB PO (07:50)
[2018-06-09] MEDS: COMBIGAN EYE DROPS (PATIENT'S OWN MED) OU ×2 (07:50→20:53)
[2018-06-09] MEDS: MAGNESIUM GLUCONATE 500 MG TAB PO (20:52)
[2018-06-09] MEDS: ATORVASTATIN 20 MG TAB PO (20:52)
[2018-06-09] MEDS: METOPROLOL SUCC (TopROL XL) 50MG **XL** TAB PO (20:53)
[2018-06-09] MEDS: FLUOROMETHOLONE 0.1% OPHTH SUSP 5 ML BTL OU (20:53)
[2018-06-09] MEDS: **hydrALAZINE HCL** 25 MG TAB PO (20:53)
[2018-06-09] MEDS: CALCIUM CARBONATE 500 MG CHEW U/D PO (23:02)
[2018-06-09] MEDS: NS 1,000 ML IV (23:04)
[2018-06-10 06:27] LABS: HEMATOCRIT 40.5 % (42.0-52.0); HEMOGLOBIN 13.8 g/dl (13.5-17.5); MEAN CORPUSCULAR HEMOGLOBIN 31.4 pg (27.0-33.0); MEAN CORPUSCULAR HGB CONC 34.1 g/dl (32.0-36.5); MEAN CORPUSCULAR VOLUME 92.3 fl (80.0-96.0); PLATELET COUNT, AUTOMATED 172 10^3/uL (150-450); RED BLOOD COUNT 4.39 10^6/uL (4.30-6.10); WHITE BLOOD COUNT 8.1 10^3/uL (4.0-10.0)
[2018-06-10 06:52] LABS: ALBUMIN 3.3 GM/DL (3.2-5.2); ALBUMIN/GLOBULIN RATIO 1.22 (1.00-1.93); ALKALINE PHOSPHATASE 78 U/L (45-117); ALT/SGPT 26 U/L (12-78); ANION GAP 8 MEQ/L (8-16); AST/SGOT 19 U/L (7-37); BILIRUBIN,TOTAL 0.7 MG/DL (0.2-1.0); BLOOD UREA NITROGEN 24 MG/DL (7-18); CALCIUM LEVEL 8.5 MG/DL (8.8-10.2); CARBON DIOXIDE LEVEL 24 MEQ/L (21-32); CHLORIDE LEVEL 111 MEQ/L (98-107); CREATININE FOR GFR 1.47 MG/DL (0.70-1.30); GLOMERULAR FILTRATION RATE 48.4 (>35); GLUCOSE, FASTING 106 MG/DL (70-100); LIPASE 527 U/L (73-393); POTASSIUM SERUM 4.3 MEQ/L (3.5-5.1); SODIUM LEVEL 143 MEQ/L (136-145)
[2018-06-10] MEDS: ASPIRIN 81 MG ENTERIC TAB PO (08:21)
[2018-06-10] MEDS: COMBIGAN EYE DROPS (PATIENT'S OWN MED) OU ×2 (08:21→21:06)
[2018-06-10] MEDS: MULTIVITAMINS/MINERALS THERAP 1 TAB PO (08:21)
[2018-06-10] MEDS: PANTOPRAZOLE 40MG INJ (PROTONIX) (C9113) IV ×2 (08:21→21:07)
[2018-06-10] MEDS: CLOPIDOGREL 75 MG TAB PO (08:21)
[2018-06-10] MEDS: SUCRALFATE 1 GM TAB PO ×4 (08:21→21:06)
[2018-06-10] MEDS: ALLOPURINOL 300 MG TAB PO (08:21)
[2018-06-10] MEDS: predniSONE 20 MG TAB PO (12:03)
[2018-06-10] MEDS: amLODIPine 10 MG TAB PO (15:28)
[2018-06-10] MEDS: MAGNESIUM GLUCONATE 500 MG TAB PO (21:05)
[2018-06-10] MEDS: ATORVASTATIN 20 MG TAB PO (21:06)
[2018-06-10] MEDS: FLUOROMETHOLONE 0.1% OPHTH SUSP 5 ML BTL OU (21:06)
[2018-06-10] MEDS: **hydrALAZINE HCL** 25 MG TAB PO (21:07)
[2018-06-10] MEDS: METOPROLOL SUCC (TopROL XL) 50MG **XL** TAB PO (21:07)
[2018-06-11] MEDS: **hydrALAZINE HCL** 25 MG TAB PO ×2 (04:27→20:17)
[2018-06-11] MEDS: METOPROLOL SUCC *XL* 25MG TAB (TopROL *XL*) PO (04:28)
[2018-06-11 06:52] LABS: HEMATOCRIT 39.5 % (42.0-52.0); HEMOGLOBIN 13.4 g/dl (13.5-17.5); MEAN CORPUSCULAR HEMOGLOBIN 31.2 pg (27.0-33.0); MEAN CORPUSCULAR HGB CONC 33.9 g/dl (32.0-36.5); MEAN CORPUSCULAR VOLUME 91.9 fl (80.0-96.0); PLATELET COUNT, AUTOMATED 173 10^3/uL (150-450); WHITE BLOOD COUNT 9.9 10^3/uL (4.0-10.0)
[2018-06-11 07:13] LABS: ALBUMIN/GLOBULIN RATIO 1.07 (1.00-1.93); ALKALINE PHOSPHATASE 70 U/L (45-117); ALT/SGPT 21 U/L (12-78); ANION GAP 7 MEQ/L (8-16); AST/SGOT 14 U/L (7-37); BILIRUBIN,TOTAL 0.5 MG/DL (0.2-1.0); BLOOD UREA NITROGEN 20 MG/DL (7-18); CALCIUM LEVEL 8.9 MG/DL (8.8-10.2); CARBON DIOXIDE LEVEL 26 MEQ/L (21-32); CHLORIDE LEVEL 109 MEQ/L (98-107); CREATININE FOR GFR 1.45 MG/DL (0.70-1.30); GLOMERULAR FILTRATION RATE 49.1 (>35); GLUCOSE, FASTING 110 MG/DL (70-100); LIPASE 281 U/L (73-393); POTASSIUM SERUM 3.9 MEQ/L (3.5-5.1); SODIUM LEVEL 142 MEQ/L (136-145); TOTAL PROTEIN 5.8 GM/DL (6.4-8.2)
[2018-06-11] MEDS: VITAMIN D 1,000 INTERNATIONAL UNITS TABLET PO (07:25)
[2018-06-11] MEDS: CLOPIDOGREL 75 MG TAB PO (07:25)
[2018-06-11] MEDS: SUCRALFATE 1 GM TAB PO ×4 (07:25→20:18)
[2018-06-11] MEDS: amLODIPine 10 MG TAB PO (07:25)
[2018-06-11] MEDS: predniSONE 20 MG TAB PO (07:25)
[2018-06-11] MEDS: MULTIVITAMINS/MINERALS THERAP 1 TAB PO (07:25)
[2018-06-11] MEDS: ALLOPURINOL 300 MG TAB PO (07:25)
[2018-06-11] MEDS: COMBIGAN EYE DROPS (PATIENT'S OWN MED) OU ×2 (07:25→20:18)
[2018-06-11] MEDS: ASPIRIN 81 MG ENTERIC TAB PO (07:25)
[2018-06-11] MEDS: PANTOPRAZOLE 40MG TAB (PROTONIX) PO (07:25)
[2018-06-11] MEDS: MAGNESIUM GLUCONATE 500 MG TAB PO (20:17)
[2018-06-11] MEDS: ATORVASTATIN 20 MG TAB PO (20:17)
[2018-06-11] MEDS: FLUOROMETHOLONE 0.1% OPHTH SUSP 5 ML BTL OU (20:18)
[2018-06-11] MEDS: METOPROLOL SUCC (TopROL XL) 50MG **XL** TAB PO (20:18)
[2018-06-11] MEDS: SENOKOT S TAB PO (21:36)
[2018-06-12 05:39] LABS: HEMATOCRIT 38.9 % (42.0-52.0); HEMOGLOBIN 13.2 g/dl (13.5-17.5); MEAN CORPUSCULAR HEMOGLOBIN 30.8 pg (27.0-33.0); MEAN CORPUSCULAR HGB CONC 33.9 g/dl (32.0-36.5); MEAN CORPUSCULAR VOLUME 90.7 fl (80.0-96.0); PLATELET COUNT, AUTOMATED 203 10^3/uL (150-450); RED BLOOD COUNT 4.29 10^6/uL (4.30-6.10); WHITE BLOOD COUNT 13.1 10^3/uL (4.0-10.0)
[2018-06-12 06:04] LABS: ALBUMIN 3.1 GM/DL (3.2-5.2); ALBUMIN/GLOBULIN RATIO 1.03 (1.00-1.93); ALKALINE PHOSPHATASE 67 U/L (45-117); ALT/SGPT 25 U/L (12-78); ANION GAP 7 MEQ/L (8-16); AST/SGOT 11 U/L (7-37); BILIRUBIN,TOTAL 0.5 MG/DL (0.2-1.0); BLOOD UREA NITROGEN 25 MG/DL (7-18); CALCIUM LEVEL 8.7 MG/DL (8.8-10.2); CARBON DIOXIDE LEVEL 27 MEQ/L (21-32); CHLORIDE LEVEL 106 MEQ/L (98-107); CREATININE FOR GFR 1.62 MG/DL (0.70-1.30); GLOMERULAR FILTRATION RATE 43.2 (>35); GLUCOSE, FASTING 102 MG/DL (70-100); LIPASE 283 U/L (73-393); SODIUM LEVEL 140 MEQ/L (136-145); TOTAL PROTEIN 6.1 GM/DL (6.4-8.2)
[2018-06-12] MEDS: ASPIRIN 81 MG ENTERIC TAB PO (08:37)
[2018-06-12] MEDS: MULTIVITAMINS/MINERALS THERAP 1 TAB PO (08:37)
[2018-06-12] MEDS: SUCRALFATE 1 GM TAB PO ×4 (08:37→21:15)
[2018-06-12] MEDS: ALLOPURINOL 300 MG TAB PO (08:37)
[2018-06-12] MEDS: PANTOPRAZOLE 40MG TAB (PROTONIX) PO (08:37)
[2018-06-12] MEDS: CLOPIDOGREL 75 MG TAB PO (08:37)
[2018-06-12] MEDS: COMBIGAN EYE DROPS (PATIENT'S OWN MED) OU ×2 (08:38→21:16)
[2018-06-12] MEDS: amLODIPine 10 MG TAB PO (08:38)
[2018-06-12] MEDS: predniSONE 20 MG TAB PO (08:38)
[2018-06-12] MEDS: MOM 30ML SUSPENSION UDC PO (17:06)
[2018-06-12] MEDS: MAGNESIUM GLUCONATE 500 MG TAB PO (21:14)
[2018-06-12] MEDS: ATORVASTATIN 20 MG TAB PO (21:14)
[2018-06-12] MEDS: METOPROLOL SUCC (TopROL XL) 50MG **XL** TAB PO (21:15)
[2018-06-12] MEDS: **hydrALAZINE HCL** 25 MG TAB PO (21:15)
[2018-06-12] MEDS: FLUOROMETHOLONE 0.1% OPHTH SUSP 5 ML BTL OU (21:16)
[2018-06-13 06:36] LABS: HEMATOCRIT 39.8 % (42.0-52.0); HEMOGLOBIN 13.4 g/dl (13.5-17.5); MEAN CORPUSCULAR HEMOGLOBIN 31.2 pg (27.0-33.0); MEAN CORPUSCULAR HGB CONC 33.7 g/dl (32.0-36.5); MEAN CORPUSCULAR VOLUME 92.8 fl (80.0-96.0); PLATELET COUNT, AUTOMATED 203 10^3/uL (150-450); RED BLOOD COUNT 4.29 10^6/uL (4.30-6.10); RED CELL DISTRIBUTION WIDTH 14.1 % (11.5-14.5); WHITE BLOOD COUNT 12.4 10^3/uL (4.0-10.0)
[2018-06-13 07:01] LABS: ALBUMIN 2.9 GM/DL (3.2-5.2); ALBUMIN/GLOBULIN RATIO 0.97 (1.00-1.93); ALKALINE PHOSPHATASE 65 U/L (45-117); ALT/SGPT 28 U/L (12-78); ANION GAP 5 MEQ/L (8-16); AST/SGOT 14 U/L (7-37); BILIRUBIN,TOTAL 0.6 MG/DL (0.2-1.0); BLOOD UREA NITROGEN 28 MG/DL (7-18); CALCIUM LEVEL 8.7 MG/DL (8.8-10.2); CARBON DIOXIDE LEVEL 30 MEQ/L (21-32); CHLORIDE LEVEL 104 MEQ/L (98-107); CREATININE FOR GFR 1.64 MG/DL (0.70-1.30); GLOMERULAR FILTRATION RATE 42.6 (>35); GLUCOSE, FASTING 92 MG/DL (70-100); LIPASE 248 U/L (73-393); POTASSIUM SERUM 4.4 MEQ/L (3.5-5.1); SODIUM LEVEL 139 MEQ/L (136-145); TOTAL PROTEIN 5.9 GM/DL (6.4-8.2)
[2018-06-13] MEDS: amLODIPine 10 MG TAB PO (08:08)
[2018-06-13] MEDS: PANTOPRAZOLE 40MG TAB (PROTONIX) PO ×2 (08:08→21:46)
[2018-06-13] MEDS: VITAMIN D 1,000 INTERNATIONAL UNITS TABLET PO (08:08)
[2018-06-13] MEDS: SUCRALFATE 1 GM TAB PO ×4 (08:08→21:46)
[2018-06-13] MEDS: ASPIRIN 81 MG ENTERIC TAB PO (08:08)
[2018-06-13] MEDS: MULTIVITAMINS/MINERALS THERAP 1 TAB PO (08:08)
[2018-06-13] MEDS: CLOPIDOGREL 75 MG TAB PO (08:08)
[2018-06-13] MEDS: ALLOPURINOL 300 MG TAB PO (08:08)
[2018-06-13] MEDS: COMBIGAN EYE DROPS (PATIENT'S OWN MED) OU ×2 (08:09→21:45)
[2018-06-13] MEDS: CALCIUM CARBONATE 500 MG CHEW U/D PO ×2 (12:37→17:03)
[2018-06-13] MEDS: FLUOROMETHOLONE 0.1% OPHTH SUSP 5 ML BTL OU (21:45)
[2018-06-13] MEDS: MAGNESIUM GLUCONATE 500 MG TAB PO (21:45)
[2018-06-13] MEDS: ATORVASTATIN 20 MG TAB PO (21:46)
[2018-06-13] MEDS: SENOKOT S TAB PO (21:46)
[2018-06-13] MEDS: **hydrALAZINE HCL** 25 MG TAB PO (21:47)
[2018-06-13] MEDS: METOPROLOL SUCC (TopROL XL) 50MG **XL** TAB PO (21:48)
[2018-06-14 06:52] LABS: HEMATOCRIT 40.4 % (42.0-52.0); HEMOGLOBIN 13.5 g/dl (13.5-17.5); MEAN CORPUSCULAR HEMOGLOBIN 31.3 pg (27.0-33.0); MEAN CORPUSCULAR HGB CONC 33.4 g/dl (32.0-36.5); MEAN CORPUSCULAR VOLUME 93.5 fl (80.0-96.0); PLATELET COUNT, AUTOMATED 214 10^3/uL (150-450); RED BLOOD COUNT 4.32 10^6/uL (4.30-6.10); RED CELL DISTRIBUTION WIDTH 14.3 % (11.5-14.5); WHITE BLOOD COUNT 8.6 10^3/uL (4.0-10.0)
[2018-06-14 07:09] LABS: ALBUMIN/GLOBULIN RATIO 1.07 (1.00-1.93); ALKALINE PHOSPHATASE 62 U/L (45-117); ALT/SGPT 33 U/L (12-78); ANION GAP 5 MEQ/L (8-16); AST/SGOT 16 U/L (7-37); BILIRUBIN,TOTAL 0.5 MG/DL (0.2-1.0); BLOOD UREA NITROGEN 34 MG/DL (7-18); CALCIUM LEVEL 8.9 MG/DL (8.8-10.2); CARBON DIOXIDE LEVEL 30 MEQ/L (21-32); CHLORIDE LEVEL 104 MEQ/L (98-107); CREATININE FOR GFR 1.79 MG/DL (0.70-1.30); GLOMERULAR FILTRATION RATE 38.5 (>35); GLUCOSE, FASTING 88 MG/DL (70-100); LIPASE 414 U/L (73-393); POTASSIUM SERUM 4.2 MEQ/L (3.5-5.1); SODIUM LEVEL 139 MEQ/L (136-145); TOTAL PROTEIN 5.8 GM/DL (6.4-8.2)
[2018-06-14] MEDS: ALLOPURINOL 300 MG TAB PO (08:56)
[2018-06-14] MEDS: CLOPIDOGREL 75 MG TAB PO (08:56)
[2018-06-14] MEDS: amLODIPine 10 MG TAB PO (08:58)
[2018-06-14] MEDS: SUCRALFATE 1 GM TAB PO ×4 (08:58→21:38)
[2018-06-14] MEDS: CALCIUM CARBONATE 500 MG CHEW U/D PO ×3 (08:58→17:19)
[2018-06-14] MEDS: PANTOPRAZOLE 40MG TAB (PROTONIX) PO ×2 (08:59→21:37)
[2018-06-14] MEDS: MULTIVITAMINS/MINERALS THERAP 1 TAB PO (08:59)
[2018-06-14] MEDS: COMBIGAN EYE DROPS (PATIENT'S OWN MED) OU ×2 (08:59→21:38)
[2018-06-14] MEDS: ASPIRIN 81 MG ENTERIC TAB PO (08:59)
[2018-06-14] MEDS: METOPROLOL SUCC (TopROL XL) 50MG **XL** TAB PO (21:37)
[2018-06-14] MEDS: MAGNESIUM GLUCONATE 500 MG TAB PO (21:38)
[2018-06-14] MEDS: ATORVASTATIN 20 MG TAB PO (21:38)
[2018-06-14] MEDS: **hydrALAZINE HCL** 25 MG TAB PO (21:38)
[2018-06-14] MEDS: FLUOROMETHOLONE 0.1% OPHTH SUSP 5 ML BTL OU (21:38)
[2018-06-14] MEDS: SENOKOT S TAB PO (23:04)
[2018-06-15 08:27] LABS: HEMATOCRIT 43.8 % (42.0-52.0); HEMOGLOBIN 14.9 g/dl (13.5-17.5); MEAN CORPUSCULAR HEMOGLOBIN 31.5 pg (27.0-33.0); MEAN CORPUSCULAR VOLUME 92.6 fl (80.0-96.0); PLATELET COUNT, AUTOMATED 238 10^3/uL (150-450); RED BLOOD COUNT 4.73 10^6/uL (4.30-6.10); RED CELL DISTRIBUTION WIDTH 14.3 % (11.5-14.5); WHITE BLOOD COUNT 9.2 10^3/uL (4.0-10.0)
[2018-06-15 08:58] LABS: RENIN LEVEL 0.728 ng/mL/hr (0.167-5.380)
[2018-06-15 08:59] LABS: ANION GAP 6 MEQ/L (8-16); BLOOD UREA NITROGEN 29 MG/DL (7-18); CARBON DIOXIDE LEVEL 29 MEQ/L (21-32); CHLORIDE LEVEL 102 MEQ/L (98-107); CREATININE FOR GFR 1.67 MG/DL (0.70-1.30); GLOMERULAR FILTRATION RATE 41.7 (>35); GLUCOSE, FASTING 95 MG/DL (70-100); SODIUM LEVEL 137 MEQ/L (136-145)
[2018-06-15] MEDS: CALCIUM CARBONATE 500 MG CHEW U/D PO ×2 (09:36→12:30)
[2018-06-15] MEDS: CLOPIDOGREL 75 MG TAB PO (09:37)
[2018-06-15] MEDS: PANTOPRAZOLE 40MG TAB (PROTONIX) PO (09:37)
[2018-06-15] MEDS: ALLOPURINOL 300 MG TAB PO (09:37)
[2018-06-15] MEDS: ASPIRIN 81 MG ENTERIC TAB PO (09:37)
[2018-06-15] MEDS: SUCRALFATE 1 GM TAB PO ×2 (09:37→13:00)
[2018-06-15] MEDS: MULTIVITAMINS/MINERALS THERAP 1 TAB PO (09:37)
[2018-06-15] MEDS: amLODIPine 10 MG TAB PO (09:38)
[2018-06-15] MEDS: VITAMIN D 1,000 INTERNATIONAL UNITS TABLET PO (09:38)
[2018-06-15] MEDS: COMBIGAN EYE DROPS (PATIENT'S OWN MED) OU (09:39)
[2018-06-15] MEDS ORDERED: LOSARTAN 50 MG TAB PO (21:00)
[2018-06-21 08:47] LABS: DOPAMINE 87 ug/24 hr (0-510); DOPAMINE TOTAL URINE 53 ug/L (Undefined); EPINEPHRINE 3 ug/24 hr (0-20); EPINEPHRINE TOTAL URINE 2 ug/L (Undefined); NOREPINEPHRINE 28 ug/24 hr (0-135); NOREPINEPHRINE TOTAL URINE 17 ug/L (Undefined)
== END 2018-06-15 14:17 | disposition home or self-care (01) | DRG 394 ==
LOC: M MSPAV 06-08 16:40 → M ED 03:11 → M ED INP 14:27 → M PCU 18:02
PROC: 0DB78ZX Excision of Stomach, Pylorus, Via Natural or Artificial Opening Endoscopic, Diagnostic (ICD-10-PCS; principal; 2018-06-08 13:30)
PROC: 0DB98ZX Excision of Duodenum, Via Natural or Artificial Opening Endoscopic, Diagnostic (ICD-10-PCS; 2018-06-08 13:30)
PROC: B4141ZZ Fluoroscopy of Superior Mesenteric Artery using Low Osmolar Contrast (ICD-10-PCS; 2018-06-08 15:02)
DX: K55.1 Chronic vascular disorders of intestine (principal); N17.9 Acute kidney failure, unspecified; K29.80 Duodenitis without bleeding; K29.70 Gastritis, unspecified, without bleeding; E55.9 Vitamin D deficiency, unspecified; M10.30 Gout due to renal impairment, unspecified site; N18.3 Chronic kidney disease, stage 3 (moderate); N40.0 Benign prostatic hyperplasia without lower urinary tract symptoms; E78.5 Hyperlipidemia, unspecified; I73.9 Peripheral vascular disease, unspecified; I12.9 Hypertensive chronic kidney disease with stage 1 through stage 4 chronic kidney disease, or unspecified chronic kidney disease; Z79.899 Other long term (current) drug therapy; Z90.49 Acquired absence of other specified parts of digestive tract; Z79.82 Long term (current) use of aspirin; Z79.02 Long term (current) use of antithrombotics/antiplatelets

== ENCOUNTER → 2018-11-20 | Outpatient (CLI) | payer MEDICARE, OTHER ==
[~2018-11-20] MED LIST: ALIG4CAP PO; ALLO10TA PO; AMLO10TA5 PO; ASPI81TA26 PO; ASPI81TA83 PO; ATOR40TA75 PO; CALC1CAP31 PO; CENTCHW4 PO; CLOP75TA2 PO; COLC1TAB13 PO; COMB0.2S OU; COZA50TA PO; COZA50TA18 PO; D31000TA PO; DICY10CA13 PO; Docusate Sod/Senna PO; FISH1000 PO; FLOM0.4C39 PO; FLUO1OPD OU; FLUOROMETHOLONE OU; FURO40TA2 PO; HYDR-3911 PO; LASI40TA PO; LIPI20TA PO; MAGN500T PO; METO-743 PO; METO1TAB7 PO; MULTIVIT PO; OFLOSO PO; PANT40TA3 PO; PLAV1TAB2 PO; PROBCAP4 PO; SUCR1TA PO; TIMO; VALS1TAB68 PO; VITA-182 PO; VITMTA PO; ZYLO300T6 PO; amlodipine PO; flaxseed oil PO; timolol OU
--- NOTE | 2018-11-20 09:17 | REP ---
Doppler ultrasound of the superior mesenteric artery and celiac artery: The patient reportedly had stents placed last year. The studies performed to evaluate patency. Abdominal aorta pre celiac artery: The flow velocity 66.8 cm/sec. Waveform is triphasic. The celiac axis proximal: Flow velocity is 153 cm/sec. The waveform is monophasic. Superior mesenteric artery proximal: The flow velocity is 167 cm/sec. Waveform is triphasic. Superior mesenteric artery mid: Flow velocity is 179 cm/sec. Wave forms triphasic. Impression: Flow velocities and wave forms are normal. There is no evidence of stenosis. Electronically Signed by Candido Feliciano MD 11/20/2018 09:09 A
== END ==
LOC: M RAD 07:29
PROVIDERS: ATTEND Surgery Vascular Surgery
DX: K55.1 Chronic vascular disorders of intestine (principal)

== ENCOUNTER → 2018-11-28 | Outpatient (CLI) | payer MEDICARE, OTHER ==
[2018-11-28 11:14] LABS: ALBUMIN 4.3 GM/DL (3.2-5.2); BILIRUBIN,DIRECT 0.1 MG/DL (0.0-0.2); BILIRUBIN,TOTAL 0.5 MG/DL (0.2-1.0); TOTAL PROTEIN 7.2 GM/DL (6.4-8.2)
== END ==
LOC: M LAB 10:16
PROVIDERS: ATTEND Internal Medicine Gastroenterology
DX: K63.89 Other specified diseases of intestine (principal)

== ENCOUNTER → 2018-12-07 | Outpatient (CLI) | payer MEDICARE, OTHER ==
--- NOTE | 2018-12-08 01:25 | REP ---
MRCP: MRCP exam is accomplished utilizing multiple heavily T2-weighted sequences in the axial and coronal planes with MIP reconstruction images. Comparison is made with prior MRCP exam of 11/11/2017. There is no intrahepatic biliary dilatation. The common bile duct is not dilated. Maximum diameter is 5 mm. Smooth tapering is seen distally of the common bile duct. Pancreatic duct is not dilated. There is no evidence of choledocholithiasis. The patient has had a cholecystectomy. Two small cysts are seen in the upper pole of the left kidney. There is a nodule, which is hypointense on T2, in the mid left kidney measuring 2.4 cm in diameter. This is unchanged since the prior MRI in 2006 and is most consistent with a hemorrhagic cyst. IMPRESSION: No biliary dilatation or evidence of choledocholithiasis. Status post cholecystectomy. Electronically Signed by Candido Shaw MD 12/08/2018 12:40 P
[2018-12-08 10:57] LABS: CA19-9 TUMOR MARKER,CARBOHYDRA 38.2 U/ML (<35.0)
== END ==
LOC: M LAB 16:06
PROVIDERS: ATTEND Internal Medicine Gastroenterology
DX: R74.8 Abnormal levels of other serum enzymes (principal); Z90.49 Acquired absence of other specified parts of digestive tract; N28.1 Cyst of kidney, acquired; K86.89 Other specified diseases of pancreas

== ENCOUNTER → 2019-05-24 | Outpatient (CLI) | payer MEDICARE, OTHER ==
--- NOTE | 2019-05-24 10:48 | REP ---
DUPLEX DOPPLER EVALUATION OF MESENTERIC ARTERIES: Real-time ultrasound evaluation and Duplex Doppler interrogation of the mesenteric arteries are performed. Peak systolic velocity of the proximal abdominal aorta is 83 cm/s. At the origin of the celiac artery peak systolic velocity os 169 cm/s with monophasic wave form. At the origin of the superior mesenteric artery peak systolic velocity is 233 cm/s with monophasic wave form. There is no evidence of tardus parvus configuration and no evidence of flow turbulence. Ratio of celiac artery to aortic velocity is 2.0 and superior mesenteric to aortic velocity 2.8. Ratios are fairly similar to the prior study of 11/20/2018. There is no compelling evidence for significant stenosis of the celiac or superior mesenteric arteries. Electronically Signed by Candido Shaw MD 05/25/2019 09:15 A
== END ==
LOC: M RAD 08:22
PROVIDERS: ATTEND Surgery Vascular Surgery
DX: K55.1 Chronic vascular disorders of intestine (principal)

== ENCOUNTER → 2021-01-26 | Outpatient (CLI) | payer MEDICARE, OTHER ==
[~2021-01-26] MED LIST changes: -AMLO10TA5 PO; +AMLO1TAB25 PO; +COLC0.6T47 PO; -COLC1TAB13 PO; +PANT40TA29 PO; -PANT40TA3 PO
--- NOTE | 2021-01-26 10:17 | REP ---
INDICATION: CHRONIC VAS DISEASE OF INTESTINE; CHRONIC VAS DISEASE OF THE INTESTINE. COMPARISON: 05/24/2019. TECHNIQUE: Real-time sonographic evaluation and duplex Doppler interrogation of the celiac and superior mesenteric arteries is performed. FINDINGS: The peak systolic velocity of the proximal abdominal aorta is 63.6 centimeters/second. At the origin of the celiac artery peak systolic velocity is 151.1 centimeter/second with monophasic waveform. Peak systolic velocity of the superior mesenteric artery at its origin is 157.1 centimeters/second, distally 93.1 centimeter/second with monophasic waveform. Celiac to aortic velocity ratio 2.4, SMA to aortic ratio 2.5. IMPRESSION: No compelling duplex Doppler sonographic evidence of hemodynamically significant stenosis of the celiac or superior mesenteric arteries as discussed above. No significant change compared to the prior study. <Electronically signed by Candido Shaw > 01/26/21 1014
== END ==
LOC: M RAD 08:17
PROVIDERS: ATTEND Surgery Vascular Surgery
DX: K55.1 Chronic vascular disorders of intestine (principal)

== ENCOUNTER → 2021-03-11 | Outpatient (REF) | payer MEDICARE, OTHER | LOC: M LAB REF 17:44 | PROVIDERS: ATTEND Internal Medicine Nephrology | DX: E83.42 Hypomagnesemia (principal) ==

== ENCOUNTER → 2021-04-16 | Outpatient (REF) | payer MEDICARE, OTHER ==
[2021-04-16 13:53] LABS: INR 0.92; PROTHROMBIN TIME 12.8 SECONDS (12.7-14.5)
== END ==
LOC: M LAB REF 12:58
PROVIDERS: ATTEND Internal Medicine Nephrology
DX: R31.9 Hematuria, unspecified (principal); E83.42 Hypomagnesemia